=== PATIENT | male | born 1990 | race Caucasian/White ===

== ENCOUNTER 2024-10-17 08:49 | Emergency (ER) | payer SELFPAY ==
[2024-10-17] VITALS (7 sets, daily range): BP systolic 158–184; BP diastolic 74–98; PULSE 81–92; RESP 16–83; TEMP 36.5–36.6; O2SAT 94–98
--- NOTE | ~2024-10-17 | CT_ITS ---
CLINICAL INDICATION: Epigastric pain, nausea and vomiting COMPARISON: None. TECHNIQUE: Multiple contiguous axial images of the abdomen and pelvis were performed following the ad ministration of with 100 mL Omnipaque-350 intravenous contrast The dose-length product (DLP) was 1789.27 mGy-cm. Automated exposure control and iterative reconstruction technique were employed. FINDINGS/OBSERVATIONS: Visualized lower thorax: The bilateral lung bases are clear. The heart is of normal size, without pericardial effusion. Liver: The liver enhances homogeneously and is nonenlarged measuring 17 cm in longitudinal dimension. Gallbladder and biliary system: The gallbladder is minimally distended, contains multiple noncalcified stones and is otherwise unrema rkable. Pancreas: The pancreas enhances homogeneously without ductal dilatation. Spleen: The spleen enhances homogeneously and is not enlarged measuring 8 cm in longitudinal dimension. Kidneys: The bilateral kidneys enhance symmetrically without hydronephrosis or renal calculi. Adrenal glands: Unremarkable. Gastrointestinal tract: Fecal stasis within the colon. Appendix: The air-filled appendix is of normal caliber (axial series, images 141 through 165). Vasculature: Unremarkable. Lymph nodes: No pathologically enlarged or morphologically suspicious lymph nodes within the retroperitoneum or at the root of the mesentery. Pelvic structures: The bladder is distended, and otherwise unremarkable. The prostate gland is not enlarged. Body wall and musculoskeletal: Small fat-containing umbilical hernia. No significant degenerative disease within the lower thoracic or lumbosacral spine. IMPRESSION: Cholelithiasis. Otherwise, no acute intra-abdominal pathology, as detailed above. Reviewed, dictated and finalized at location A. [facility]
--- NOTE | 2024-10-17 08:57 | ED_ITS ---
HPI - Nausea/Vomiting/Diarrhea General Chief complaint: Nausea/Vomiting/Diarrhea Stated complaint: abdominal pain Time Seen by Provider: 10/17/24 08:57 Source: patient Mode of arrival: ambulatory Limitations: no limitations History of Present Illness HPI Narrative: 34-year-old male with a history of hypertension presents to the ED with 8 hour history of -- nausea with 2 episodes of vomiting -- multiple episodes of diarrhea. -- Epigastric abdominal cramps no fever or chills. His grandfather had similar symptoms. He tested positive for influenza a few days ago. MD elicited complaint: nausea, vomiting, diarrhea and abdominal pain Onset (ago): hour(s) ( 8 hours) Description of vomiting: watery Description of diarrhea: watery Associated nausea: No Associated abdominal pain: Yes Location of pain: epigastric Pain consistency: intermittent Severity: moderate Quality: aching Exacerbating factors: none Relieving factors: none Associated symptoms: denies other symptoms Related Data Allergies Allergy/AdvReac Type Severity Reaction Status Date / Time No Known Allergies Allergy Verified 10/17/24 08:56 Review of Systems 2 Review of Systems: All systems reviewed & are unremarkable except as noted in HPI and below PMFSH Past Medical History Medical History (Updated 10/17/24 @ 11:32 by Neymar Camara MD) Hypertension Exam 2 Narrative: afebrile. Heart rate of 90 Const: General: no acute distress Nutritional Appearance: well nourished Orientation/consciousness: patient oriented x3 Limitations: no limitations HENMT: Head: normal to inspection Ears: external ears normal F [place]/Nose/Sinus: Normal external nose present Face and sinus: normal facial exam Mouth: Yes Normal oral and palatal mucosa present Throat: posterior oropharynx normal Eyes: Conjunctivae: conjunctivae normal Cornea: corneas normal Pupils: E qual, round and reactive pupils present EOM: EOMs intact bilaterally D irect Ophthalmoscopy: no photophobia Neck: Neck: normal visual inspection and no lymphadenopathy Chest: Chest palpation & inspection: normal inspection of the chest Resp: Effort & Inspection: normal respiratory effort Auscultation: clear to auscultation bilaterally Cardio: Rate: regular rate Rhythm: regular rhythm GI: GI Palp: Yes Soft to palpation Auscultation: normal bowel sounds O ther: no tenderness/ rigidity/ rebound. : General: Yes no CVA tenderness Back/Spine/Pelvis: Back: no CVA tenderness Skin: General skin exam: normal color Rashes: no rashes Wounds: no wounds Neuro: General: patient oriented x3, moves all extremities, no meningeal signs, no focal motor deficits and CN's II-XI intact bilaterally Cranial nerves: Yes Nystagmus not present Speech: normal speech Gait exam (Neuro): Normal gait present Extrem: General: normal to inspection and no clubbing, cyanosis or edema Psych: Mental Status: mental status grossly normal Affect: normal affect Attitude: cooperative Course Course Emergency Course: Gastroenteritis epigastric pain-- CT of the abdomen and pelvis revealed gallstones without any gallbladder enlargement. Elevated LFTs Vital Signs Vital signs: Vital Signs Temperature 36.5 C 10/17/24 08:56 Pulse Rate 90 10/17/24 08:56 Respiratory Rate 18 10/17/24 08:56 Blood Pressure 158/98 H 10/17/24 08:56 Pulse Oximetry 97 10/17/24 08:56 Oxygen Delivery Room Air 10/17/24 08:56 Temperature 36.5 C 10/17/24 08:56 Pulse Rate 82 10/17/24 09:30 Respiratory Rate 83 H 10/17/24 10:00 Blood Pressure 173/76 H 10/17/24 10:00 Pulse Oximetry 95 10/17/24 10:00 Oxygen Delivery Room Air 10/17/24 10:00 MDM - Nausea/Vomiting/Diarrhea MDM Narrative Medical decision making narrative: gallstones /biliary colic transaminitis Differential Diagnosis Differential diagnosis: Likely other ( cholecystitis) Medical Records Attestation: I reviewed the patient's medical records. Lab Data Attestation: I reviewed the patient's lab results. 10/17/24 09:24 10/17/24 09:24 Labs: Lab Results 10/17/24 Range/Units 09:24 WBC 9.1 (4.8-10.8) K/mm3 RBC 5.77 (4.70-6.10) M/mm3 Hgb 15.4 (14.0-18.0) g/dL Hct 48.0 (40.0-54.0) % MCV 83.2 (78.0-102.0) fL MCH 26.7 L (27.0-31.0) pg MCHC 32.1 (32-36) g/dL RDW 13.9 (11.6-14.4) % Plt Count 327 (150-420) K/mm3 MPV 10.8 (8.7-11.0) fl Immature Gran % (Auto) 0.3 H (0.0-0.0) % Neut % (Auto) 81.6 H (50.0-70.0) % Lymph % (Auto) 11.1 L (18.0-42.0) % [place] % (Auto) 6.3 (2.0-11.0) % Eos % (Auto) 0.4 L (1.0-6.0) % Baso % (Auto) 0.3 (0.0-1.0) % Lymph # (Auto) 1.01 L (1.10-4.50) K/mm3 [place] # (Auto) 0.57 (0.10-0.90) K/mm3 Eos # (Auto) 0.04 (0.02-0.50) K/mm3 Baso # (Auto) 0.03 (0.00-0.10) K/mm3 Abs Immat Gran (auto) 0.03 H (0.00-0.00) K/mm3 Absolute Neuts (auto) 7.41 H (1.70-7.20) K/mm3 Absolute Nucleated RBC 0.00 (0.00-0.00) K/mm3 Nucleated RBC % 0.0 (0-0.0) % Sodium 139 (136-145) mmol/L Potassium 3.7 (3.5-5.1) mmol/L Chloride 101 (98-108) mmol/L Carbon Dioxide 26 (21-32) mmol/L Anion Gap 12 (4-12) mmol/L BUN 7 (7-18) mg/dL Creatinine 0.89 (0.70-1.30) mg/dL Estim Creat Clear Calc 171 ml/min Estimated GFR > 60 (59 - ) Glucose 142 H (70-99) mg/dL Calculated Osmolality 288 (285-295) mOsm/kg Lactic Acid 1.6 (0.4-2.0) mmol/L Calcium 9.5 (8.5-10.1) mg/dL Total Bilirubin 1.7 H (0.00-1.00) mg/dL AST 448 H (15-37) U/L ALT 555 H (16-63) U/L Alkaline Phosphatase 62 (46-116) U/L Total Protein 7.6 (6.4-8.2) g/dL Albumin 4.4 (3.4-5.0) g/dL Lipase 34 (16-77) U/L Urine Color Yellow (Yellow) Urine Appearance Clear (Clear) Urine pH 7.0 (5.0-8.0) Ur Specific [place] 1.025 H (1.010-1.020) Urine Protein 1+ H (Negative) Urine Glucose (UA) Negative (Negative) Urine Ketones Negative (Negative) Ur Blood (Man) Negative (Negative) Urine Nitrate Negative (Negative) Urine Bilirubin Negative (Negative) Urine Urobilinogen 0.2 (0.2-1.0) mg/dL Leukocyte Esterase Rfl Negative (Negative) [place]/UL Amorphous Sediment Few H (None) Urine Mucus Heavy H /lpf Discharge Plan Discharge Clinical Impression: Gallstones, Epigastric pain, Transaminitis Patient Disposition: Home, Self-Care Condition: Stable Instructions: Antibiotic Form, Gallstones (ED), Transaminitis (ED) Additional Instructions: follow-up with your primary care physician for elevated LFTs Patient Language: [place] Prescriptions: New ondansetron HCl 4 mg tablet 4 mg PO Q8H PRN (Reason: nausea and vomiting) 4 Days Qty: 10 0RF oxycodone-acetaminophen [Percocet] 5-325 mg tablet 1 tablet PO Q6H PRN (Reason: pain) Qty: 10 0RF Follow-up/Referrals: Evangelista,RAFA Quintero [Primary Care Provider] - Time of Disposition: 11:36
[2024-10-17 09:48] LABS: Basophils Absolute Auto 0.03 K/mm3 (0.00-0.10); Basophils Percent Auto 0.3 % (0.0-1.0); Eosinophils Absolute Auto 0.04 K/mm3 (0.02-0.50); Eosinophils Percent Auto 0.4 % (1.0-6.0); Hemoglobin 15.4 g/dL (14.0-18.0); Immature Granulocyte Absolute 0.03 K/mm3 (0.00-0.00); Immature Granulocyte Percent A 0.3 % (0.0-0.0); Lymphocytes Absolute Auto 1.01 K/mm3 (1.10-4.50); Lymphocytes Percent Auto 11.1 % (18.0-42.0); Mean Corpuscular HGB Conc 32.1 g/dL (32-36); Mean Corpuscular Hemoglobin 26.7 pg (27.0-31.0); Mean Corpuscular Volume 83.2 fL (78.0-102.0); Mean Platelet Volume 10.8 fl (8.7-11.0); Monocytes Absolute Auto 0.57 K/mm3 (0.10-0.90); Monocytes Percent Auto 6.3 % (2.0-11.0); Neutrophils Absolute Auto 7.41 K/mm3 (1.70-7.20); Neutrophils Percent Auto 81.6 % (50.0-70.0); Platelet Count Result 327 K/mm3 (150-420); Red Blood Count 5.77 M/mm3 (4.70-6.10); Red Cell Distribution Width 13.9 % (11.6-14.4); White Blood Count 9.1 K/mm3 (4.8-10.8)
[2024-10-17 09:49] LABS: Add Urine Microscopic? YES; Appearance Urine Clear (Clear); Bilirubin Urine Negative (Negative); Blood Urine Negative (Negative); Color Urine Yellow (Yellow); Glucose Urine UA Negative (Negative); Ketones Urine Negative (Negative); Leukocyte Esterase Ur Negative LEU/UL (Negative); Nitrate Urine Negative (Negative); Protein Urine 1+ (Negative); Specific Grav Ur 1.025 (1.010-1.020); Urobilinogen Urine 0.2 mg/dL (0.2-1.0)
[2024-10-17 09:57] LABS: Amorphous Sediment Urine Few; Mucus Urine Heavy /lpf
[2024-10-17 10:07] LABS: Lactic Acid Reflex 1.6 mmol/L (0.4-2.0)
[2024-10-17 10:13] LABS: Alanine Aminotransferase 555 U/L (16-63); Albumin Level 4.4 g/dL (3.4-5.0); Alkaline Phosphatase 62 U/L (46-116); Anion Gap 12 mmol/L (4-12); Aspartate Amino Transferase 448 U/L (15-37); Bilirubin,Total 1.7 mg/dL (0.00-1.00); Blood Urea Nitrogen 7 mg/dL (7-18); Calcium 9.5 mg/dL (8.5-10.1); Carbon Dioxide 26 mmol/L (21-32); Chloride 101 mmol/L (98-108); Estimated CRCL calculation 171 ml/min; Estimated Glomerular Filt Rate > 60; Glucose 142 mg/dL (70-99); Lipase 34 U/L (16-77); Osmolality Calculated 288 mOsm/kg (285-295); Potassium 3.7 mmol/L (3.5-5.1); Sodium 139 mmol/L (136-145); Total Protein 7.6 g/dL (6.4-8.2)
[2024-10-17] MEDS: LACTATED RINGERS 1,000 ML 999 ML IV CONT (10:53)
--- NOTE | 2024-10-17 11:10 | PC.NURSE ---
patient back from Ct. Taken to bathroom, ambulatory with steady gait.
[2024-10-17] MEDS: HYDROmorphone HCL INJ (*CRX) 2 MG/ML VIAL 0.5 MG IV PUSH (11:32)
[2024-10-17] MEDS: ONDANSETRON INJ 4 MG/2 ML VIAL IV PUSH (11:32)
== END 2024-10-17 12:00 | disposition home or self-care (01) ==
PROVIDERS: Emergency Provider Internal Medicine Critical Care Medicine; PCP Physician Assistant
DX: K80.20 Calculus of gallbladder without cholecystitis without obstruction (principal); R74.01 Elevation of levels of liver transaminase levels; I10 Essential (primary) hypertension
CPT/HCPCS: 36415; 74177; 80053; 81001; 83605; 83690; 85025; 96361; 96374; 96375; 99284; J1171; J2405; J7120; Q9967